=== PATIENT | female | born 1940 | race Caucasian/White ===

== ENCOUNTER → 2017-07-20 | Outpatient (CLI) | payer OTHER ==
[~2017-07-20] MED LIST: LEVO112T7 PO; METO-408 PO; MIRALAX PO; MULTIVITAMIN PO; PRAV20TA4 PO; PROBIOTIC PO; VITAMIN C PO; VITAMIN D3 PO; WARF2TAB57 PO; WARF4TAB41 PO
== END ==
LOC: RAH 14:15
PROVIDERS: ATTEND Family Medicine
DX: Z12.31 Encounter for screening mammogram for malignant neoplasm of breast (principal)
CPT/HCPCS: 77067

== ENCOUNTER → 2019-08-15 | Outpatient (CLI) | payer OTHER | END | disposition home or self-care (01) | LOC: SHCH 13:33 | PROVIDERS: ATTEND Internal Medicine Cardiovascular Disease | DX: I11.0 Hypertensive heart disease with heart failure (principal); I50.30 Unspecified diastolic (congestive) heart failure | CPT/HCPCS: 93306 ==